=== PATIENT | male | born 2000 | race Caucasian/White ===

== ENCOUNTER 2024-03-03 10:44 | Emergency (ER) | payer SELFPAY ==
[2024-03-03 10:46] VITALS: BP 151/88
--- NOTE | 2024-03-03 11:58 | ED.GENMED ---
History of Present Illness
General
Chief Complaint: Breathing Problem
Time Seen by Provider: 03/03/24 10:56
History of Present Illness
History of Present Illness:
23-year-old male without significant past medical history presenting for left-sided chest pain. Patient reports symptoms for the past 3 days. Pain is on the left chest wall, radiates to his back. Pain is worse with any deep inspiration. Notes
that he did recently started vaping again. Denies any known cardiac or pulmonary history. Denies any recent fall or trauma. Denies abdominal pain or GI symptoms. Notes about a month ago he had surgery on his right clavicle, however feels
unrelated. Pain has been constant. Denies additional acute medical complaints
Phy Exam
Physical Exam
Physical Exam:
General: Well-appearing, no clinical signs of dehydration, nontoxic and in no acute distress
HEENT: protecting airway
Neck: appears supple
CV: Normal heart rate, regular rhythm, no evidence of cyanosis
Resp: No accessory muscle use, no increased work of breathing, lungs clear to auscultation bilaterally
Abd: No distention
Extremities: No deformities, no swelling, no erythema, pulses and sensation intact
Neuro: alert, no focal neurologic deficit
: deferred
Rectal: deferred
Psych: Normal affect
Skin: Intact
Course
Orders/Labs/Results
Orders:
Orders
03/03/24 11:58
Electrocardiogram (*1) Urgent
Reason for Study: Chest Pain
EKG- Treatment ONCE
CR Chest - 2 Views Urgent
Comment:
Reason For Exam: L-sided pain, r/o pneumo
03/03/24 12:47
Complete Blood Count/With Diff Urgent
Comprehensive Metabolic Panel Urgent
Troponin I Urgent
Abnormal Lab Results
03/03/24
12:47
RBC 4.59 L 10^6/uL
(4.70-6.10)
Absolute Monos (auto) 0.8 H 10^3/uL
(0.1-0.6)
Monocytes % 10.9 H %
(1.7-9.3)
Carbon Dioxide 31 H mmol/L
(22-30)
03/03/24 12:47
03/03/24 12:47
Vital Signs
Initial and Last Documented VS:
Initial Vital Signs
Temp Pulse Resp BP Pulse Ox
99.1 F 65 16 151/88 99
03/03/24 10:46 03/03/24 10:46 03/03/24 10:46 03/03/24 10:46 03/03/24 10:46
Last Documented Vital Signs
Temp Pulse Resp BP Pulse Ox
99.1 F 59 23 131/83 99
03/03/24 10:46 03/03/24 12:45 03/03/24 12:45 03/03/24 12:14 03/03/24 12:45
MDM/Problems Addressed
MDM/Problems Addressed:
23-year-old male without significant past medical history presenting for left-sided chest wall pain for the past 3 days. Vital signs significant for mild hypertension.
On exam, patient well-appearing, no acute distress. No acute respiratory distress. Benign cardiac exam. On pulmonary exam, breath sounds bilaterally. Lower suspicion for significant pulmonary pathology. Possible pleurisy versus musculoskeletal
component. Patient is thin, did recently start vaping, so small pneumothorax is a consideration. Will obtain chest x-ray imaging. Will screen with EKG, however lower suspicion for ACS, absence of cardiac risk factors. Will also screen with
laboratory analysis.
13:45 -patient's labs are unremarkable. Chest x-ray without acute abnormality. At this time suspect pleurisy versus costochondritis versus musculoskeletal etiology. Advised that patient stop vaping. Otherwise feel stable for discharge. Return
precautions discussed and patient verbalized understanding
*EKG
Interpreted by ED Provider?: Yes
EKG Intrepretation Date: 03/03/24
EKG Intrepretation Time: 12:30
Interpretation: normal
Comparison EKG: no comparison EKG present
Heart Rate: 57
Rate: bradycardiac
Rhythm: sinus
Cornelius: normal axis
Interval: normal interval
QRS Pattern: normal QRS
Ischemia: no ischemia
*Critical Care Note
Total Time (30-74mins, 75-104mins- exclusive of procedures): Not Applicable
ED Attending Note
-
Portions of this chart may have been created with voice recognition software.� Occasional wrong word or��sound alike� substitutions may have occurred due to the inherent limitations of voice recognition software.
Discharge Plan
Departure
Prescriptions:
No Action
albuterol sulfate [ProAir HFA] 90 mcg/actuation HFA aerosol inhaler
1 puff inhalation Q4HPRN PRN (Reason: shortness of breath) Qty: 6.7 0RF
Referrals:
UNKNOWN - PT DOES,NOT KNOW [Family Provider] -
Interventions
Interventions:
*Risk Screen - Suicide Last Done: 03/03/24 10:46
*General Assessment Last Done: 03/03/24 10:46
*Neglect/Abuse Screening Last Done: 03/03/24 10:46
ED- Fall Risk Assessment Last Done: 03/03/24 10:54
*ED COVID-19 Vaccine History Last Done: 03/03/24 10:54
ED- Cardiac Assessment Last Done: 03/03/24 12:48
ED- Pulmonary Assessment Last Done: 03/03/24 10:54
Discharge Date and Time
Print Language: IRANIAN
[2024-03-03 12:14] VITALS: BP 131/83
[2024-03-03 12:54] LABS: % Basophils 0.9 % (0-2); % Eosinophils 3.1 % (0-6); % Immature Granulocytes 0.1 % (0-0.5); % Lymphocytes 24.7 % (20.5-51.1); % Monocytes 10.9 % (1.7-9.3); % Neutrophils 60.3 % (42.2-75.2); Absolute Basophils 0.1 10^3/uL (0-0.2); Absolute Eosinophils 0.2 10^3/uL (0-0.7); Absolute Lymphocytes 1.7 10^3/uL (1.2-3.4); Absolute Monocytes 0.8 10^3/uL (0.1-0.6); Absolute Neutrophils 4.1 10^3/uL (1.4-6.5); Hematocrit 40.3 % (39.0-52.0); Hemoglobin 13.8 g/dL (13.0-18.0); Mean Corp Hgb Conc. 34.2 g/dL (33.0-37.0); Mean Corpuscular Hgb 30.1 pg (27.0-31.0); Mean Corpuscular Volume 87.8 fL (80.0-94.0); Mean Platelet Volume 9.5 fL (7.4-10.4); Nucleated Red Blood Cells % 0 % (-); Platelet Count 255 10^3/uL (130-400); Red Blood Cell Count 4.59 10^6/uL (4.70-6.10); Red Cell Dist. Width 12.8 % (11.5-14.5); White Blood Cell Count 6.9 10^3/uL (4.8-10.8)
[2024-03-03 13:11] LABS: ALT (SGPT) 11 U/L (0-50); AST (SGOT) 19 U/L (17-59); Albumin 4.8 g/dl (3.5-5.0); Alkaline Phosphatase 86 U/L (38-126); Blood Urea Nitrogen 12 mg/dl (9-20); Calcium 9.9 mg/dl (8.4-10.2); Carbon Dioxide 31 mmol/L (22-30); Chloride 102 mmol/L (98-107); Glucose 91 mg/dl (70-99); Potassium 4.6 mmol/L (3.5-5.1); Sodium 139 mmol/L (135-145); Total Protein 7.1 g/dl (6.3-8.2); eGFR > 60.00
[2024-03-03 13:21] LABS: Troponin I < 0.012 ng/ml
== END 2024-03-03 14:14 | disposition home or self-care (01) ==
LOC: EMR 10:44
PROVIDERS: EMERGENCY PHYSICIAN Student in an Organized Health Care Education/Training Program
DX: R07.89 Other chest pain (principal)
CPT/HCPCS: 99285; 71046; 80053; 84484; 85025; 93005